=== PATIENT | male | born 1935 ===

== ENCOUNTER → 2019-07-07 19:02 | Outpatient (CLI) | payer MEDICARE ==
[2019-07-07 19:50] LABS: HEMOGLOBIN 12.4 g/dL (13.5-17.5); MCH 31.5 pg (26.0-34.0); MCHC 33.5 g/dL (31.0-37.0); MCV 93.9 fL (80.0-100.0); MEAN PLATELET VOLUME 10.6 fL (7.4-10.4); PLATELET COUNT 196 10x3/uL (130-400); RBC 3.94 10x6/uL (4.20-6.10); RDW 13.8 % (11.5-14.5)
[2019-07-07 20:21] LABS: ALBUMIN 3.9 g/dL (3.4-5.0); ANION GAP 13.8 mmol/L (8-16); BILIRUBIN - TOTAL 0.35 mg/dL (0.2-1.3); CALCIUM 10.2 mg/dL (8.5-10.1); CARBON DIOXIDE 32.3 mmol/L (21.0-32.0); CREATININE - SERUM 6.8 mg/dL (0.6-1.3); POTASSIUM - SERUM 4.1 mmol/L (3.5-5.1); THYROID STIMULATING HORMONE 2.05 uIU/mL (0.36-3.74)
[2019-07-07 21:28] LABS: EOSINOPHILS 5 % (0-7); LYMPHOCYTES 71 % (15-50); MONOCYTES 2 % (2-11); NEUTROPHILS 20 % (40-80); PLATELET ESTIMATE NORMAL
== END | disposition home or self-care (01) ==
LOC: D.LABREF 19:02
PROVIDERS: ATTEND Family Medicine
DX: E11.22 Type 2 diabetes mellitus with diabetic chronic kidney disease (principal); N18.6 End stage renal disease